=== PATIENT | male | born 1960 | race Caucasian/White ===

== ENCOUNTER 2020-03-04 11:46 | Emergency (ER) | payer OTHER, SELFPAY ==
[2020-03-04] VITALS (12 sets, daily range): BP systolic 121–169; BP diastolic 93–108; PULSE 64–96; RESP 12–21; TEMP 36.2–37; O2SAT 96–100
--- NOTE | ~2020-03-04 | XR_ITS ---
EXAMINATION: XR chest 1V portable EXAM DATE: 03/04/2020 15:14 INDICATION: Cough, headache, dizziness, running nose abdominal pain nausea and vomiting, symptoms 5 d ays. TECHNIQUE: Frontal and lateral projections of the chest obtained and reviewed. Comparison is made to prior examination from 10/02/2017. FINDINGS: Moderate chronic appearing hyperinflation. The lungs are clear. There are no pleural effu sions. The cardiomediastinal silhouette is within normal limits. There is no pneumothorax suspected . The bones and soft tissues are unremarkable. IMPRESSION: 1. No acute cardiopulmonary findings. 2. Hyperinflation. Reviewed, dictated and finalized at location A. [facility]
[2020-03-04 12:15] LABS: Basophils Percent Auto 0.4 % (0.2-1.2); Hematocrit 47.3 % (42.0-52.0); Hemoglobin 16.8 g/dL (14.0-18.0); Immature Granulocyte Absolute 0.03 K/mm3 (0.00-0.031); Immature Granulocyte Percent A 0.4 % (0-0.5); Lymphocytes Absolute Auto 1.31 K/mm3 (0.9-3.2); Lymphocytes Percent Auto 15.5 % (18.3-44.2); Mean Corpuscular HGB Conc 35.5 g/dl (32-36); Mean Corpuscular Hemoglobin 31.9 pg (26-34); Mean Corpuscular Volume 89.8 fl (80-100); Mean Platelet Volume 9.4 fl (7.4-10.4); Monocytes Absolute Auto 0.5 K/mm3 (0.1-0.6); Monocytes Percent Auto 6.3 % (2.6-8.5); Neutrophils Absolute Auto 6.6 K/mm3 (1.3-6.7); Neutrophils Percent Auto 77.4 % (45.5-73.1); Platelet Count Result 272 k/mm3 (150-375); Red Blood Count 5.27 M/mm3 (4.6-6.20); Red Cell Distribution Width 12.5 % (11.5-14.5); White Blood Count 8.5 K/mm3 (4.5-10.0)
[2020-03-04 12:33] LABS: Alanine Aminotransferase 98 U/L (4-50); Albumin Level 4.4 g/dL (3.5-5.1); Alkaline Phosphatase 68 U/L (38-126); Anion Gap 11 mmol/L (8-16); Aspartate Amino Transferase 46 U/L (17-59); Bilirubin,Total 1.7 mg/dL (0.2-1.3); Blood Urea Nitrogen 17 mg/dL (9-20); Calcium 9.7 mg/dL (8.4-10.2); Carbon Dioxide 23 mmol/L (22-30); Chloride 98 mmol/L (98-107); Estimated CRCL calculation 84 ml/min; Estimated Glomerular Filt Rate > 60; Glucose 131 mg/dL (75-110); Lipase 65 U/L (23-300); Potassium 3.8 mmol/L (3.4-5.0); Sodium 132 mmol/L (137-145)
--- NOTE | 2020-03-04 14:17 | ED.URI ---
HPI - URI/Sore Throat General Chief Complaint: Upper Respiratory Infection Stated Complaint: N/V, RUNNY NOSE, HEADACHE Time Seen by Provider: 03/04/20 14:03 Source: patient Mode of arrival: ambulatory Limitations: no limitations History of Present Illness HPI Narrative: Patient 59-year-old female complaining of cough, runny nose, nausea, vomiting, diarrhea abdominal pain, headache x 3 days after drinking alcohol with his brother. Patient currently denies any nausea vomiting, abdominal pain or headache. Patient denies any chest pain or shortness of breath. Patient denies any fever or chills. Related Data Allergies Allergy/AdvReac Type Severity Reaction Status Date / Time No Known Allergies Allergy Unknown Verified 05/09/16 06:53 Review of Systems Review of Systems: All systems reviewed & are unremarkable except as noted in HPI and below Constitutional: Constitutional: Denies body ache(s), Denies chills, Denies excessive sweating, Denies fatigue, Denies fever(s), Denies headache(s), Denies lethargy, Denies malaise, Denies weakness and Denies weight loss Eyes: Eyes: Denies blurry vision, Denies change in vision and Denies loss of vision ENT: Denies dizziness, Denies ear discharge, Denies headache(s), Denies lip swelling, Denies epistaxis, Denies neck pain, Denies throat swelling and Denies tongue swelling Cardiovascular: Cardiovascular: Denies chest pain, Denies chest pain at rest, Denies chest pain with activity, Denies diaphoresis, Denies rapid heart rate, Denies edema, Denies irregular heart rhythm, Denies lightheadedness, Denies palpitations, Denies dyspnea and Denies dyspnea on exertion Respiratory: Respiratory: Denies chest congestion, Denies hemoptysis, Denies dyspnea and Denies dyspnea on exertion Gastrointestinal: Gastrointestinal: Denies abdominal pain, Denies melena, Denies hematochezia and Denies hematemesis Musculoskeletal: Musculoskeletal: Denies abnormal gait, Denies deformity, Denies joint swelling, Denies limited range of motion, Denies neck pain and Denies numbness Neurologic: Denies Abnormal speech present, Denies abnormal gait, Denies confusion, Denies dizziness, Denies headache(s), Denies focal weakness, Denies loss of vision, Denies numbness, Denies Other visual disturbances, Denies Sensory deficit (Neuro) and Denies weakness Psychiatric: Psychiatric: Denies confusion, Denies depression, Denies auditory hallucinations, Denies homicidal ideation and Denies suicidal ideation Endocrine: Endocrine: Denies cold intolerance, Denies excessive sweating, Denies fatigue, Denies heat intolerance and Denies palpitations Hematologic/Lymphatic: Hematologic/Lymphatic: Denies easy bleeding and Denies easy bruising Allergic/Immunologic: Allergic/Immunologic: Denies lip swelling, Denies throat swelling and Denies tongue swelling [facility] Social History Social History Gender identity (if verbalized by the patient): Male Exam Const: General: cooperative, healthy appearing, comfortable, no acute distress, well developed, alert and awake; No confusion Orientation/consciousness: oriented to person, oriented to place, oriented to time, patient oriented x3 and No confusion Limitations: no limitations HENMT: Head: normal to inspection, normocephalic and atraumatic Ears: hearing grossly normal bilaterally, TM normal on the right and TM normal on the left General nose exam: Normal external nose present, Normal nares present and No nasal discharge present Face and sinus: normal facial exam Mouth: Yes Normal oral and palatal mucosa present, Yes lip normal, Yes tongue normal and Yes oropharynx normal Throat: posterior oropharynx normal, tonsils normal and uvula midline Eyes: General: appearance normal, both eyes and all related structures Pupils: Equal, round and reactive pupils present EOM: EOMs intact bilaterally Neck: Neck: normal visual inspection, full ROM, no lymphadenopathy and no meningeal signs Chest: Chest palpation &
[2020-03-04] MEDS: SODIUM CHLORIDE 0.9% IV 1,000 ML 999 ML IV CONT (14:41)
--- NOTE | 2020-03-04 14:41 | PC.NURSE ---
Initial contact with patient. IVF initiated as ordered. Pt refusing orthostatics at present time. Reports feels chilled . Oral temp 98.6 at present.
[2020-03-04 15:48] LABS: Lipase 69 U/L (23-300)
[2020-03-04 15:54] LABS: Add Urine Microscopic? YES; Appearance Urine Clear (Clear); Bacteria Urine Trace /hpf; Bilirubin Urine Negative (Negative); Blood Urine Negative (Negative); Color Urine Yellow (Yellow); Glucose Urine UA Negative (Negative); Ketones Urine 1+ mg/dL (Negative); Leukocyte Esterase Ur Negative LEU/UL (Negative); Mucus Urine Heavy /lpf; Nitrate Urine Negative (Negative); Protein Urine 1+ mg/dL (Negative); Specific Grav Ur 1.028 (1.001-1.035); Urobilinogen Urine Negative mg/dL (<2.0); WBC Urine 0-3 /hpf
== END 2020-03-04 16:55 | disposition home or self-care (01) ==
PROVIDERS: Emergency Medicine; Emergency Provider Emergency Medicine; PCP Family Medicine
DX: J06.9 Acute upper respiratory infection, unspecified (principal)
CPT/HCPCS: 36415; 71045; 80053; 81001; 83690; 85025; 96360; 99283; J7030

== ENCOUNTER 2021-05-16 09:38 | Outpatient (CLI) | payer OTHER, SELFPAY ==
--- NOTE | 2021-05-16 | ECG_ITS ---
Measurements Intervals [place] Rate: 53 P: -35 [place]: 183 QRS: 70 QRSD: 100 T: 63 QT: 414 QTc: 391 Interpretive Statements SINUS BRADYCARDIA OTHERWISE NORMAL ECG NO PREVIOUS ECG AVAILABLE FOR COMPARISON Electronically Signed On 05-16-2021 11:24:22 CDT by Alvarado Yoon M.D.
--- NOTE | ~2021-05-16 | XR_ITS ---
XR chest 2V 05/16/2021 09:58 Indication: Chest pain Procedure: 2 view chest Comparison: 03/04/2020 Findings: Heart size normal. No focal air space disease, pulmonary edema, pleural effusion or suspect ed pneumothorax. The lungs are hyperinflated which is consistent with, but not diagnostic of chronic obstructive pulmonary disease. Impression: 1: No acute cardiopulmonary disease. Reviewed, dictated and finalized at location A. Impression: 1: No acute cardiopulmonary disease.
== END 2021-05-16 09:39 | disposition home or self-care (01) ==
PROVIDERS: PCP Family Medicine; Visit Provider Nurse Practitioner Adult Health
DX: R07.9 Chest pain, unspecified (principal); I20.9 Angina pectoris, unspecified
CPT/HCPCS: 71046; 93005

== ENCOUNTER 2021-06-09 10:56 | Emergency (ER) | payer OTHER, SELFPAY ==
--- NOTE | ~2021-06-09 | XR_ITS ---
EXAMINATION: XR shoulder LT min 2V DATE: 06/09/2021 11:28 INDICATION: Anterior left shoulder pain. TECHNIQUE: 4 views of left shoulder were obtained. COMPARISON: None. FINDINGS: There is a nondisplaced comminuted fracture of proximal humerus with involvement of the gre ater tuberosity. There is mild osteoarthritis of glenohumeral joint and acromioclavicular joint. IMPRESSION: 1. Comminuted one-part fracture of proximal left humerus. 2. Mild polyarticular osteoarthritis. Reviewed, dictated and finalized at location A.
[2021-06-09 11:03] VITALS: BP 156/93; PULSE 90; RESP 14; TEMP 36.8; O2SAT 99
--- NOTE | 2021-06-09 11:14 | ECG_ITS ---
Measurements Intervals [place] Rate: 66 P: 81 [place]: 176 QRS: 44 QRSD: 96 T: 53 QT: 392 QTc: 412 Interpretive Statements SINUS RHYTHM WITH SINUS ARRHYTHMIA ANTERIOR ST-ELEVATION, PROBABLY EARLY REPOLARIZATION ABNORMAL ECG COMPARED TO ECG 05/16/2021 10:15:46 SINUS RHYTHM NOW PRESENT SINUS ARRHYTHMIA NOW PRESENT Electronically Signed On 06-09-2021 15:52:07 CDT by Alvarado Yoon M.D.
[2021-06-09] MEDS: oxyCODONE/ACETAMINOPHEN (*CRX) 5-325 MG TABLET 1 TABLET PO (11:36)
[2021-06-09] MEDS: ONDANSETRON HCL ODT 4 MG TABLET PO (11:36)
--- NOTE | 2021-06-09 11:45 | ED.UPPEXIN ---
HPI - Extremity Injury (Upper) General Chief Complaint: Extremity Injury, Upper Stated Complaint: shoulder injury Time Seen by Provider: 06/09/21 11:08 Source: patient and RN notes reviewed Mode of arrival: ambulatory Limitations: no limitations History of Present Illness HPI narrative: This is a 61 year old male right hand dominant who presents for evaluation of left shoulder pain s/p fall. Patient states he accidentally fell backwards and hit corner of left shoulder on concrete. He denies hitting his head or LOC. He states he is unable to left his left arm without pain. He denies numbness or tingling. He is reporting left anterior chest pain from the fall but denies hitting his chest. He denies sob. He has not taking anything for pain. He is not prescribed blood thinners. He denies neck pain. Related Data Allergies Allergy/AdvReac Type Severity Reaction Status Date / Time No Known Allergies Allergy Unknown Verified 05/09/16 06:53 Review of Systems Review of Systems: All systems reviewed & are unremarkable except as noted in HPI and below PMFSH Past Medical History Medical History (Updated 06/09/21 @ 12:05 by Jane Suarez MD) Anxiety Arteriovenous malformation, brain Depression Surgical History Surgical History (Updated 06/09/21 @ 11:51 by Jane Suarez MD) H/O brain surgery Social History Social History (Updated 06/09/21 @ 11:53 by Jane Suarez MD) Smoking packs per day: 1 Smoking cigarettes per day: 20.0 Smoking status: Current every day smoker Gender identity (if verbalized by the patient): Male Exam Const: General: no acute distress and alert Orientation/consciousness: patient oriented x3 HENMT: Head: normocephalic and atraumatic Face and sinus: face symmetric Eyes: EOM: EOMs intact bilaterally Neck: Neck: normal visual inspection Chest: Chest palpation & inspection: normal inspection of the chest and no tenderness Resp: Effort & Inspection: normal respiratory effort Auscultation: clear to auscultation bilaterally Cardio: Rate: regular rate Rhythm: regular rhythm Heart sounds: no murmurs Back/Spine/Pelvis: Back: no CVA tenderness Cervical Spine: normal cervical lordosis, cervical ROM normal, No cervical muscular tenderness and No Cervical spine tenderness Skin: General skin exam: normal color Rashes: no rashes Extrem: Other: Patient is able to passively abduct left shoulder. Pain along left shoulder greater tuberosity with ranging, neurovascular intact, no deformity, no swelling or bruising. Psych: Mental Status: mental status grossly normal Affect: normal affect Course Reevaluation(s) Date: 06/09/21 Consultations Consultation #1: I Discussed xrary with Dr. Corado, application [facility]. He states to place patient in shoulder immobilizer and have him to follow up in clinic next week. Date: 06/09/21 Time: 11:46 Vital Signs Vital signs: Vital Signs Temperature 98.3 F 06/09/21 11:03 Pulse Rate 90 06/09/21 11:03 Respiratory Rate 14 06/09/21 11:03 Blood Pressure 156/93 H 06/09/21 11:03 Pulse Oximetry 99 06/09/21 11:03 Temperature 98.3 F 06/09/21 11:03 Pulse Rate 90 06/09/21 11:03 Respiratory Rate 14 06/09/21 11:03 Blood Pressure 156/93 H 06/09/21 11:03 Pulse Oximetry 99 06/09/21 11:03 MDM - Extremity Injury (Upper) Imaging Data Radiologist's impression: ITS Impressions Shoulder X-Ray 06/09/21 11:33 IMPRESSION: 1. Comminuted one-part fracture of proximal left humerus. 2. Mild polyarticular osteoarthritis. Discharge Plan Discharge Clinical Impression: Nondisplaced fracture of proximal end of left humerus Patient Disposition: Home, Self-Care Condition: Stable Instructions: Proximal Humerus Fracture (ED), Shoulder Immobilizer (ED) Additional Instructions: Today you were found to have fracture to your shoulder. You will need to wear the shoulder immobilizer as instructed. C
== END 2021-06-09 13:35 | disposition home or self-care (01) ==
PROVIDERS: Emergency Provider General Practice; PCP Family Medicine
DX: S42.255A Nondisplaced fracture of greater tuberosity of left humerus, initial encounter for closed fracture (principal); F17.210 Nicotine dependence, cigarettes, uncomplicated; M19.012 Primary osteoarthritis, left shoulder; R94.31 Abnormal electrocardiogram [ECG] [EKG]; W18.30XA Fall on same level, unspecified, initial encounter
CPT/HCPCS: 73030; 93005; 99283; 99284; A9270

== ENCOUNTER 2021-06-15 16:26 | Outpatient (CLI) | payer OTHER, SELFPAY ==
--- NOTE | ~2021-06-15 | CT_ITS ---
EXAMINATION: CT shoulder LT wo con DATE: 06/15/2021 16:55 INDICATION: Proximal left humeral fracture TECHNIQUE: High resolution computed tomography (CT) of the left shoulder was performed without intrav enous contrast. Additional sagittal and coronal reconstructions were performed. Automated exposure co ntrol and iterative reconstruction technique were employed. The dose-length product was 289.11 mGy-cm . COMPARISON: None FINDINGS: Minimally displaced, mildly comminuted fracture involving the greater tuberosity of the proximal left humerus. Alignment remains near anatomic. No other fractures identified. Minimal osteoarthritis at t he glenohumeral and acromioclavicular joints. Small glenohumeral joint effusion. Mild emphysema in th e visualized left upper lung. IMPRESSION: 1. Minimally displaced comminuted one-part fracture of the greater tuberosity of the left humerus. Reviewed, dictated and finalized at location A. IMPRESSION: 1. Minimally displaced comminuted one-part fracture of the greater tuberosity o f the left humerus.
== END 2021-06-15 16:27 | disposition home or self-care (01) ==
LOC: ANHIMG 16:27
PROVIDERS: PCP Family Medicine; Visit Provider Orthopaedic Surgery
DX: S42.252A Displaced fracture of greater tuberosity of left humerus, initial encounter for closed fracture (principal); X58.XXXA Exposure to other specified factors, initial encounter
CPT/HCPCS: 73200

== ENCOUNTER 2021-11-05 09:16 | Emergency (ER) | payer OTHER, SELFPAY ==
[2021-11-05 09:19] VITALS: BP 120/75; PULSE 72; RESP 18; TEMP 36.2; O2SAT 98
--- NOTE | 2021-11-05 10:06 | ED.EYEPROB ---
HPI - Eye Problem General Chief complaint: Eye Problems Stated complaint: something in eye Time Seen by Provider: 11/05/21 09:31 Source: patient Mode of arrival: ambulatory Limitations: no limitations History of Present Illness HPI Narrative: Patient presents to the emergency department for a possible foreign body in the left eye. Reports he was outside when he felt like something flew into his eye. He has had a sensation of foreign body on his left upper eyelid since. Reports irritation and discomfort. Denies fever or visual changes. Related Data Allergies Allergy/AdvReac Type Severity Reaction Status Date / Time No Known Allergies Allergy Unknown Verified 11/05/21 09:33 Review of Systems Review of Systems: CONSTITUTIONAL: Denies fever EYES: Reports redness. Denies visual changes, or discharge. All systems reviewed & are unremarkable except as noted in HPI and below PMFSH Past Medical History Medical History (Updated 11/05/21 @ 10:08 by Vianey Luong PA-C) Anxiety Arteriovenous malformation, brain Depression Surgical History Surgical History (Updated 06/09/21 @ 11:51 by Jane Suarez MD) H/O brain surgery Social History Social History (Updated 11/05/21 @ 10:14 by Vianey Luong PA-C) Smoking packs per day: 1 Smoking cigarettes per day: 20.0 Smoking status: Former smoker Gender identity (if verbalized by the patient): Male Exam Narrative: GENERAL: Well-appearing, well-nourished, and in no acute distress. HEAD: Normocephalic, atraumatic. EYES: PERRLA. Right eye is deviated inward. 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 Left eye EOMI with mild conjunctival injection. Pressure on the right 26, on the left 14. There is a very small black foreign body noted in the left upper eyelid, this was easily removed with a q tip. No fluorescein stain uptake EXTREMITIES: Normal range of motion. No edema. SKIN: Warm, dry, no rash. NEURO: No focal deficits. Alert and oriented x3. PSYCH: Normal mood and affect Course Vital Signs Vital signs: Vital Signs Temperature 97.2 F L 11/05/21 09:19 Pulse Rate 72 11/05/21 09:19 Respiratory Rate 18 11/05/21 09:19 Blood Pressure 120/75 11/05/21 09:19 Pulse Oximetry 98 11/05/21 09:19 Oxygen Delivery Room Air 11/05/21 09:19 Temperature 97.2 F L 11/05/21 09:19 Pulse Rate 72 11/05/21 09:19 Respiratory Rate 18 11/05/21 09:19 Blood Pressure 120/75 11/05/21 09:19 Pulse Oximetry 98 11/05/21 09:19 Oxygen Delivery Room Air 11/05/21 09:19 MDM - Eye Problem MDM Narrative Medical decision making narrative: Patient presents to the emergency department for possible foreign body in the left eye. I did note a very small black foreign body on the left, inner upper eyelid. This was easily removed with a Q-tip. Patient reports feeling much better after this. Patient chronically has poor vision. 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 Visual acuity in the left is 20/100. Reports he has not been to his eye doctor in years. His eye pressure on the right was noted to be elevated. He does have known history of glaucoma and once again is blind in this eye. No obvious fluorescein stain uptake. Patient will be prophylactically started on antibiotic eye ointment after removal of a small foreign body. He was instructed to have close follow-up with his eye doctor. He was given warnings to return to the ER Critical Care Time Critical Care Time Critical Care Time: No Discharge Plan Discharge Clinical Impression: Acute foreign body of left eyelid Qualifiers: Encounter type: initial encounter Qualified Code(s): S00.252A - Superficial foreign body of left eyelid and periocular area, initial encounter Patient Disposition: Home, Self-Care Condition: Stable Instructions: Antibiotic Form, Eye Foreign Body (ED) Additional Instructions: Return to the emergency department if you e
[2021-11-05] MEDS: ERYTHROMYCIN OPHTH OINTMENT 1 GM TUBE 1 APPLIC LEFT EYE (10:15)
== END 2021-11-05 10:18 | disposition home or self-care (01) ==
PROVIDERS: Emergency Provider Emergency Medicine; PCP Family Medicine
DX: S00.252A Superficial foreign body of left eyelid and periocular area, initial encounter (principal); W20.8XXA Other cause of strike by thrown, projected or falling object, initial encounter; H54.61 Unqualified visual loss, right eye, normal vision left eye
CPT/HCPCS: 99283; A9270

== ENCOUNTER 2022-06-03 15:19 | Emergency (ER) | payer OTHER, SELFPAY ==
[2022-06-03] VITALS (24 sets, daily range): BP systolic 140–175; BP diastolic 72–140; PULSE 62–88; RESP 13–23; TEMP 36.6; O2SAT 97–100
--- NOTE | ~2022-06-03 | CT_ITS ---
EXAMINATION: CT cervical spine wo con DATE: 06/03/2022 17:29 INDICATION: neck spasms extending into arms TECHNIQUE: Computed tomography (CT) of the cervical spine was performed without intravenous contrast. Automated exposure control and iterative reconstruction technique were employed. The dose-length pro duct was 376.24 mGy-cm. COMPARISON: None. FINDINGS: Vertebral Body Alignment: Intact. Reversed lordosis, centered at C4. Craniocervical and atlantoaxial alignment: Moderate degenerative change. Alignment intact. Osseous structures/fracture: No evidence of a lytic or blastic process in the visualized spine. No e vidence of acute fracture. Old C7 spinous process fracture. Left C2-3 facet fusion. Cervical soft tissues: The paraspinal soft tissues planes are maintained. Solid-appearing right thyro id lobe mass measuring at least 4.5 cm, not completely included in the [id number]. Biapical pleura l scarring and multiple bullae. Degenerative changes: Multilevel degenerative disc disease, moderate at C5-6 and C6-7. Multilevel mil d facet arthropathy. No central canal narrowing. Multilevel mild bilateral neural foraminal narrowing . IMPRESSION: No acute fracture or traumatic malalignment in the cervical spine. Incompletely visualized solid righ t thyroid lobe mass measuring at least 4.5 cm, recommend outpatient thyroid ultrasound for further ch aracterization. Reviewed, dictated and finalized at location K. IMPRESSION: No acute fracture or traumatic malalignment in the cervical spine. Incompletely visualized solid right thyroid lobe mass measuring at least 4.5 cm, recommend outpatient thyroid ultrasound for further characterization.
--- NOTE | ~2022-06-03 | XR_ITS ---
EXAMINATION: XR chest 1V portable Exam Date/Time: 06/03/2022 16:24 CDT HISTORY: CP, NECK PAIN, R.ARM PAIN Comparison: 05/16/2021. RESULT: Lines, tubes, and devices: None. Lungs and pleura: Clear. Cardiomediastinal silhouette: Stable. Other: No acute osseous or upper abdominal finding. IMPRESSION: No acute cardiopulmonary process. Reviewed, dictated and finalized at location K.
--- NOTE | 2022-06-03 15:56 | ECG_ITS ---
Measurements Intervals [place] Rate: 65 P: 86 [place]: 171 QRS: 65 QRSD: 94 T: 64 QT: 400 QTc: 418 Interpretive Statements SINUS RHYTHM DIFFUSE J-POINT ELEVATION CONSIDER EARLY REPOLARIZATION ABNORMALITY, ACUTE PERICARDITIS OR MYOCARDIAL INJURY BORDERLINE ECG COMPARED TO ECG 06/09/2021 11:45:09 NO SIGNIFICANT CHANGES Electronically Signed On 06-04-2022 16:51:26 CDT by Moose Waller M.D.
[2022-06-03 16:34] LABS: Basophils Percent Auto 0.4 % (0.2-1.2); Eosinophils Absolute Auto 0.1 K/mm3 (0-0.3); Eosinophils Percent Auto 1.9 % (0-4.4); Hematocrit 42.9 % (42.0-52.0); Immature Granulocyte Absolute 0.02 K/mm3 (0.00-0.031); Immature Granulocyte Percent A 0.3 % (0-0.5); Lymphocytes Absolute Auto 1.94 K/mm3 (0.9-3.2); Lymphocytes Percent Auto 28.2 % (18.3-44.2); Mean Corpuscular Volume 94.3 fl (80-100); Mean Platelet Volume 9.4 fl (7.4-10.4); Monocytes Absolute Auto 0.5 K/mm3 (0.1-0.6); Monocytes Percent Auto 7.3 % (2.6-8.5); Neutrophils Absolute Auto 4.3 K/mm3 (1.3-6.7); Neutrophils Percent Auto 61.9 % (45.5-73.1); Platelet Count Result 283 k/mm3 (150-375); Red Blood Count 4.55 M/mm3 (4.6-6.20); Red Cell Distribution Width 13.5 % (11.5-14.5); White Blood Count 6.9 K/mm3 (4.5-10.0)
[2022-06-03] MEDS: LACTATED RINGERS 1,000 ML 999 ML IV CONT (16:37)
[2022-06-03] MEDS: LORazepam INJ (*CRX) 2 MG/ML VIAL 1 MG IV PUSH (16:37)
[2022-06-03 16:46] LABS: INR 0.9; Partial Thromboplastin Time 28.3 SECONDS (22.3-36.8); Prothrombin Time 12.2 Seconds (11.1-14.7)
--- NOTE | 2022-06-03 16:50 | ED.NECK ---
HPI - Neck Pain/Injury General Chief Complaint: Neck Pain/Injury <Shira Davenport PA-C - Last Filed: 06/03/22 20:22> Stated Complaint: muscle spasm <SANJAY Sorto Last Filed: 06/03/22 20:22> Time Seen by Provider: 06/03/22 16:06 <SANJAY Sorto Last Filed: 06/03/22 20:22> Source: patient <SANJAY Sorto Last Filed: 06/03/22 20:22> Mode of arrival: ambulatory <SANJAY Sorto Last Filed: 06/03/22 20:22> Limitations: no limitations <SANJAY Sorto Last Filed: 06/03/22 20:22> History of Present Illness HPI Narrative: Patient is a 62-year-old male who presents to the ED with report of neck pain and spasming. Patient reports having pain from the base of his skull, down his neck, down bilateral upper arms to his elbows. He states the pain is spasm-like and lasts for few minutes at a time. Patient reports history of similar pain and spasms since earlier this year. The current episode began this morning. The pain became so severe that patient decided to come to the ED. He notes that he has been lifting frequently at work and raking leaves. He has not tried anything for the pain prior to arrival. He states the pain is now extending towards his chest, but denies difficulty breathing, recent fevers, injury, cough or cold symptoms, numbness, tingling. <Shira Davenport PA-C - Last Filed: 06/03/22 20:22> Related Data Allergies/Adverse Reactions: Allergies Allergy/AdvReac Type Severity Reaction Status Date / Time No Known Allergies Allergy Unknown Verified 06/03/22 15:20 <SANJAY Sorto Last Filed: 06/03/22 20:22> Review of Systems Review of Systems: CONSTITUTIONAL: Denies fever, chills, or sweats. ENT: Denies rhinorrhea, congestion, sore throat. CARDIOVASCULAR: See HPI. RESPIRATORY: Denies cough or dyspnea. GASTROINTESTINAL: Denies abdominal pain, nausea, vomiting. MUSCULOSKELETAL: See HPI. NEUROLOGIC: Denies headache, numbness, or weakness. <Shira Davenport PA-C - Last Filed: 06/03/22 20:22> All systems reviewed & are unremarkable except as noted in HPI and below <Shira Davenport PA-C - Last Filed: 06/03/22 20:22> [facility] Past Medical History Medical History: Medical History Anxiety Arteriovenous malformation, brain Depression <Shira Davenport PA-C - Last Filed: 06/03/22 20:22> Surgical History Surgical History: Surgical History H/O brain surgery <Shira Davenport PA-C - Last Filed: 06/03/22 20:22> Social History Social History: Social History Smoking packs per day: 1 Smoking cigarettes per day: 20.0 Smoking status: Former smoker Gender identity (if verbalized by the patient): Male <Shira Davenport PA-C - Last Filed: 06/03/22 20:22> Exam Narrative: GENERAL: Appears older than stated age, thin, non-toxic, in no acute distress. HEAD: Normocephalic, atraumatic. NECK: Supple. No adenopathy, no masses. No midline spinal tenderness. Tenderness to palpation throughout left-sided paraspinal musculature into the trapezius muscle. Palpable muscle tension. RESPIRATORY: Airway patent, respirations nonlabored. Clear to auscultation bilaterally, no rales, rhonchi, wheezing. CARDIOVASCULAR: Regular rate and rhythm without murmurs, rubs, or gallops. Radial pulses 2+ and equal bilaterally. MUSCULOSKELETAL: Moves all extremities. Strength/ROM intact without gross deformities. No midline thoracic or lumbar spinal tenderness. No anterior chest wall tenderness to palpation. Sensation intact. Full ROM of BUEs. SKIN: Warm, dry, normal color. No rashes. NEURO: A&O X3. Speech clear. Cranial nerves II-XII grossly intact. Steady gait. No ataxic movements. PSYCHIATRIC: Anxious.
[2022-06-03 16:52] LABS: Alanine Aminotransferase 21 U/L (6-50); Albumin Level 4.6 g/dL (3.5-5.1); Alkaline Phosphatase 48 U/L (38-126); Anion Gap 8 mmol/L (8-16); Aspartate Amino Transferase 24 U/L (17-59); Bilirubin,Total 0.9 mg/dL (0.2-1.3); Blood Urea Nitrogen 16 mg/dL (9-20); Calcium 9.3 mg/dL (8.4-10.2); Carbon Dioxide 24 mmol/L (22-30); Chloride 106 mmol/L (98-107); Estimated CRCL calculation 79 ml/min; Estimated Glomerular Filt Rate > 60; Glucose 95 mg/dL (65-110); Potassium 4.2 mmol/L (3.4-5.0); Sodium 138 mmol/L (137-145)
[2022-06-03 17:41] LABS: Troponin I < 0.012 ng/mL (0.000-0.034)
[2022-06-03 18:17] LABS: Appearance Urine Clear (Clear); Bilirubin Urine Negative (Negative); Blood Urine Negative (Negative); Color Urine Yellow (Yellow); Glucose Urine UA Negative (Negative); Ketones Urine Negative (Negative); Leukocyte Esterase Ur Negative LEU/UL (Negative); Nitrate Urine Negative (Negative); Protein Urine Negative (Negative); Specific Grav Ur 1.019 (1.001-1.035)
[2022-06-03 18:22] LABS: Add Urine Microscopic? NO
[2022-06-03 18:33] LABS: Amphetamine Screen Urine Negative (Negative); Barbiturate Screen Urine Negative (Negative); Benzodiazepines Screen Urine Negative (Negative); Cannabinoid Screen Urine Positive (Negative); Cocaine Screen Urine Negative (Negative); Methadone Screen Urine Negative (Negative); Opiate Screen Urine Negative (Negative); Phencyclidine Screen Urine Negative (Negative)
[2022-06-03 20:12] LABS: Troponin I < 0.012 ng/mL (0.000-0.034)
[2022-06-03] MEDS: KETOROLAC 30 MG/ML VIAL (*BKC) IV PUSH (20:22)
[2022-06-03] MEDS: CYCLOBENZAPRINE HCL 5 MG TABLET PO (20:22)
== END 2022-06-03 20:33 | disposition home or self-care (01) ==
PROVIDERS: Emergency Medicine; Emergency Provider Physician Assistant; PCP Family Medicine
DX: E04.9 Nontoxic goiter, unspecified (principal); M54.12 Radiculopathy, cervical region; Z87.891 Personal history of nicotine dependence
CPT/HCPCS: 36415; 71045; 72125; 80053; 80307; 81003; 83735; 84484; 85025; 85610; 85730; 93005; 96361; 96374; 96375; 99284; A9270; J1885; J2060; J7120

== ENCOUNTER 2022-06-08 15:32 | Outpatient (CLI) | payer OTHER, SELFPAY ==
--- NOTE | ~2022-06-08 | US_ITS ---
EXAMINATION: US thyroid DATE: 06/08/2022 15:59 INDICATION: Thyroid nodule. TECHNIQUE: Multiple ultrasound images of the thyroid were obtained. COMPARISON: None. FINDINGS: The right thyroid lobe measures 7.5 x 3.8 x 4.6 cm. The left thyroid lobe measures 4.3 x 2.1 x 2.5 c m. In the right thyroid lobe, there is a 2.1 cm solid, hyperechoic, wider than tall nodule with smoo th margin without echogenic foci (TI-RADS TR3). In the right thyroid lobe, there is a 4.2 cm solid, p redominantly solid, hyperechoic, wider than tall nodule with smooth margin without echogenic foci (TR 3). In the left thyroid lobe, there is a 1.6 cm solid, hypoechoic, wider than tall nodule with ill-de fined margin without echogenic foci (TR4). In the left thyroid lobe, there is a 1.1 cm solid, hypoech oic, wider than tall nodule with ill-defined margin without echogenic foci (TR4). IMPRESSION: 1. Multinodular goiter. Ultrasound-guided fine-needle aspiration of 2 nodules is recommended. Reviewed, dictated and finalized at location A. IMPRESSION: 1. Multinodular goiter. Ultrasound-guided fine-needle aspiration of 2 nodules i s recommended.
== END 2022-06-08 15:33 | disposition home or self-care (01) ==
PROVIDERS: PCP Family Medicine; Visit Provider Nurse Practitioner Adult Health
DX: E04.2 Nontoxic multinodular goiter (principal)
CPT/HCPCS: 76536

== ENCOUNTER 2022-06-15 09:20 | Outpatient (CLI) | payer OTHER, SELFPAY ==
--- NOTE | ~2022-06-15 | US_ITS ---
EXAMINATION: US FNA w image guidance, US FNA additional DATE: 06/15/2022 10:31 INDICATION: Nontoxic multinodular goiter TECHNIQUE: A time-out was performed to verify the patient's name, date of , and procedure to be performed . The procedure and its benefits and risks were discussed with the patient. Risks specifically discus sed included bleeding and infection. The patient understood the risks and agreed to proceed. The neck was prepped and draped in the usual sterile manner. Attention was first turned to the left thyroid n odule. 3 mL 1% lidocaine was used for local anesthesia. 6 passes were made with a 25G needle into th e lesion. Appropriate needle location was documented with continuous sonographic guidance. Attention was then turned to the right thyroid mass. An additional 3 mL 1% lidocaine was used for local anesth esia. 6 passes were made with a 25G needle into the lesion. Appropriate needle location was documente d with continuous sonographic guidance. Sterile bandages were applied. There were no immediate compl ications. FINDINGS: Grayscale ultrasound images demonstrate biopsy needles advanced into the previous noted 1.6 cm TI RAD S 4 nodule at the inferior left thyroid. Subsequent images demonstrate biopsy needle advanced into th e larger 4.2 cm TI RADS 3 mass at the inferior right thyroid. IMPRESSION: 1. Successful ultrasound-guided fine needle aspiration of a 1.6 cm TI RADS 4 left thyroid nodule. 2. Successful ultrasound guided fine needle aspiration of a 4.2 cm TI RADS 3 right thyroid mass. Reviewed, dictated and finalized at location A. IMPRESSION: 1. Successful ultrasound-guided fine needle aspiration of a 1.6 cm TI RADS 4 l eft thyroid nodule. 2. Successful ultrasound guided fine needle aspiration of a 4.2 cm TI RADS 3 ri ght thyroid mass.
== END 2022-06-15 09:21 | disposition home or self-care (01) ==
PROVIDERS: PCP Family Medicine; Visit Provider Nurse Practitioner Adult Health
DX: E04.2 Nontoxic multinodular goiter (principal)
CPT/HCPCS: 10005; 10006; 88173; 88305

== ENCOUNTER 2022-10-27 14:16 | Emergency (ER) | payer OTHER, SELFPAY ==
[2022-10-27 14:36] VITALS: BP 124/78; PULSE 76; RESP 16; TEMP 36.7; O2SAT 98
--- NOTE | 2022-10-27 16:03 | ED.EYEPROB ---
HPI - Eye Problem General Chief complaint: Eye Problems Stated complaint: R EYE IRRITATION Time Seen by Provider: 10/27/22 14:43 Source: patient Mode of arrival: ambulatory Limitations: no limitations History of Present Illness HPI Narrative: This is a 62-year-old male with PMH of AVM, macular degeneration, chronic glaucoma who presents to the ED with chief complaint of right eye irritation for the past 3 days. Patient reports that the last several days he has been working outside in the hot sun for multiple hours a day. He reports he started with a gradual onset headache. He feels that it was due to being dehydrated and being outside for too long. He also reports clear drainage intermittently out of the right eye. Reports rhinorrhea and nasal congestion as well. States he was working in a lot of different grasses and weeds. Denies trauma, purulent drainage or crusted drainage in the mornings. Denies any further complaints. He states the right eye has been completely blind since he was a little kid. He reports that his headache had resolved completely as he was waiting to be seen. He states he feels much better indoors. Related Data Allergies Allergy/AdvReac Type Severity Reaction Status Date / Time No Known Allergies Allergy Unknown Verified 06/03/22 15:20 Review of Systems Review of Systems: All systems as dictated in [facility] Past Medical History Medical History Anxiety Arteriovenous malformation, brain Depression Surgical History Surgical History H/O brain surgery Social History Social History Smoking packs per day: 1 Smoking cigarettes per day: 20.0 Smoking status: Former smoker Gender identity (if verbalized by the patient): Male Exam Narrative: GENERAL: Well-appearing, well-nourished, and in no acute distress. HEAD: Normocephalic, atraumatic. EYES: PERRLA and EOMI. Right eye: Visual acuity 0 at baseline. Pressure at 22 mmHg. No foreign bodies or corneal abrasions appreciated. Immediate pain relief with tetracaine topically. Left eye: Visual acuity intact. Pressure 15 mmHg. ENT: Nares clear, no rhinorrhea or epistaxis. Mucous membranes moist. Oropharynx without tonsillar hypertrophy exudate or other lesions. NECK: Supple. No adenopathy or masses. CHEST: No respiratory distress. Clear to auscultation. No wheezes rales or rhonchi HEART: Regular rate and rhythm. No murmur heard. Normal peripheral pulses. ABDOMEN: Soft, nontender, nondistended, normal active bowel sounds. MSK: Normal range of motion. No edema. SKIN: Warm, dry, no rash. NEURO: Alert and oriented x3. No focal deficits. PSYCH: Normal mood and affect. Course Vital Signs Vital signs: Vital Signs Temperature 98.0 F 10/27/22 14:36 Pulse Rate 76 10/27/22 14:36 Respiratory Rate 16 10/27/22 14:36 Blood Pressure 124/78 10/27/22 14:36 Pulse Oximetry 98 10/27/22 14:36 Oxygen Delivery Room Air 10/27/22 14:36 Temperature 98.0 F 10/27/22 16:33 Pulse Rate 76 10/27/22 16:33 Respiratory Rate 16 10/27/22 16:33 Blood Pressure 120/70 10/27/22 16:33 Pulse Oximetry 100 10/27/22 16:33 Oxygen Delivery Room Air 10/27/22 14:36 MDM - Eye Problem MDM Narrative Medical decision making narrative: This is a 62-year-old male who presents to the ED with chief complaint of right eye irritation for the past 3 days. Vitals are normal. Exam reveals slightly injected right eye sclera. 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 Pressures of the right eye are very slightly elevated at 22 and normal in the left side. Fluorescein stain does not reveal any foreign bodies or abrasions. He has been working outdoors for the last several days and exposed to a lot of plants,
[2022-10-27 16:33] VITALS: BP 120/70; PULSE 76; RESP 16; TEMP 36.7; O2SAT 100
== END 2022-10-27 16:34 | disposition home or self-care (01) ==
PROVIDERS: Emergency Provider Physician Assistant; PCP Family Medicine
DX: H10.11 Acute atopic conjunctivitis, right eye (principal); H40.9 Unspecified glaucoma; H35.30 Unspecified macular degeneration; H54.61 Unqualified visual loss, right eye, normal vision left eye; Z87.891 Personal history of nicotine dependence
CPT/HCPCS: 99283

== ENCOUNTER 2023-12-02 13:28 | Emergency (ER) | payer OTHER, MEDICAID, SELFPAY ==
--- NOTE | ~2023-12-02 | CT_ITS ---
CT facial bones w con Ordering provider: Kingsley Phillips MD History: . left parotid gland/ left facial swelling. . Comparison: None. Technique: Thin slice axial CT of the facial bones was performed with contrast. Coronal and sagittal reformatted images were also obtained. . Automated exposure control and iterative reconstruction te chnique were employed. The dose-length product was 354.17 mGy-cm. 75 mL Omnipaque 350 was given IV. FINDINGS: The left parotid the gland is slightly enlarged compared to the right with an enhancing tissues. Paro tiditis is possible. Dilated left parotid duct is also noted measuring 8 mm. No definite stones seen in the area of the duct. Adjacent lymph nodes. The parotid the gland is noted with the largest measur es 1.1 cm. PARANASAL SINUSES: Well aerated. BONES: No facial fracture including no nasal bone fracture. Left nasal septal deviation. Degenerative changes of the spine. ORBITS AND SUPERFICIAL SOFT TISSUES: The optic globes and orbits are normal. The superficial soft tis sues are normal. Calcifications are seen in the right orbit medially. Clinical evaluation advised. VISUALIZED MASTOIDS: Well aerated. LIMITED VISUALIZED BRAIN PARENCHYMA: Hypodensity seen in the right parieto-occipital area which may i ndicate old infarct but vasogenic edema with underlying mass cannot be excluded. Clinical correlation and follow-up imaging is advised. IMPRESSION: Hypodensity in the right parieto-occipital area which may indicate old infarct versus mass with vasog enic edema. CT evaluation advised. Slightly enlarged parotid gland with enhancement on dilated duct. No stones seen. Parotiditis is hig hly suggestive. Stenosis at the orifice of the duct is not excluded. Calcifications in the right orbit. Clinical evaluation advised. Reviewed, dictated and finalized at location A. IMPRESSION: Hypodensity in the right parieto-occipital area which may indicate old infarct versus mass with vasogenic edema. CT evaluation advised. Slightly enlarged parotid gland with enhancement on dilated duct. No stones se en. Parotiditis is highly suggestive. Stenosis at the orifice of the duct is no t excluded. Calcifications in the right orbit. Clinical evaluation advised.
--- NOTE | ~2023-12-02 | CT_ITS ---
CT brain wo con Ordering provider: Kingsley Phillips MD History: 63 years Male with . Occipital lobe infarct . Comparison: None. Technique: CT of the head without contrast. Radiation reduction technique utilized.The dose-length product was 605.33 mGy-cm. FINDINGS: BRAIN PARENCHYMA AND CSF SPACES: Hypodensity seen in the right parieto-occipital area suggestive of a n old infarct. No definite mass is seen. No midline shift, mass effect or hemorrhage. The brain pare nchyma and CSF spaces are otherwise normal. VISUALIZED PARANASAL SINUSES: Well aerated. MASTOIDS: Well aerated. BONES: Postoperative changes in the right subapical area.: Fracture in the medial wall of the left l ower SOFT TISSUES: Visualized nasopharynx is normal. Superficial soft tissues are normal. Calcifications in the right orbit. Clinical evaluation advised. IMPRESSION: No acute intracranial findings. 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
[2023-12-02 13:29] VITALS: BP 128/101; PULSE 80; RESP 20; TEMP 36.8; O2SAT 99
--- NOTE | 2023-12-02 14:07 | ED_ITS ---
HPI - General Adult General Chief complaint: Unspecified Stated complaint: Jaw swelling Time Seen by Provider: 12/02/23 14:08 Focused HPI: GENERAL: Well-appearing, well-nourished, and in no acute distress. HEAD: Normocephalic, atraumatic. CHEST: Clear to auscultation. ?No respiratory distress. HEART: Regular rate and rhythm.? NEURO: ?Alert and oriented x3. Patient screened in triage and initial orders placed.? ?Additional care and disposition to be based upon?diagnostic testing and treatment. Related Data Allergies Allergy/AdvReac Type Severity Reaction Status Date / Time No Known Allergies Allergy Unknown Verified 12/02/23 13:33 [facility] Past Medical History Medical History Anxiety Arteriovenous malformation, brain Depression Surgical History Surgical History H/O brain surgery Social History Social History Smoking packs per day: 1 Smoking cigarettes per day: 20.0 Smoking status: Former smoker Gender identity (if verbalized by the patient): Male Course Vital Signs Vital signs: Vital Signs Temperature 98.2 F 12/02/23 13:29 Pulse Rate 80 12/02/23 13:29 Respiratory Rate 20 12/02/23 13:29 Blood Pressure 128/101 H 12/02/23 13:29 Pulse Oximetry 99 12/02/23 13:29 Oxygen Delivery Room Air 12/02/23 13:29 Temperature 98.2 F 12/02/23 13:29 Pulse Rate 80 12/02/23 13:29 Respiratory Rate 20 12/02/23 13:29 Blood Pressure 128/101 H 12/02/23 13:29 Pulse Oximetry 99 12/02/23 13:29 Oxygen Delivery Room Air 12/02/23 13:29 Medical Decision Making Vital Signs Vital Signs: Vital Signs Temperature 98.2 F 12/02/23 13:29 Pulse Rate 80 12/02/23 13:29 Respiratory Rate 20 12/02/23 13:29 Blood Pressure 128/101 H 12/02/23 13:29 Pulse Oximetry 99 12/02/23 13:29 Oxygen Delivery Room Air 12/02/23 13:29 Temperature 98.2 F 12/02/23 13:29 Pulse Rate 80 12/02/23 13:29 Respiratory Rate 20 12/02/23 13:29 Blood Pressure 128/101 H 12/02/23 13:29 Pulse Oximetry 99 12/02/23 13:29 Oxygen Delivery Room Air 12/02/23 13:29 Discharge Plan Discharge Prescriptions: No Action hydrocodone-acetaminophen 5-325 mg tablet 1 tablet PO Q6H PRN (Reason: pain) Qty: 20 0RF naproxen 250 mg tablet 250 mg PO BID PRN (Reason: pain) Qty: 15 0RF cyclobenzaprine 5 mg tablet 5 mg PO TID PRN (Reason: muscle spasm) Qty: 15 0RF Artificial Tears (PF) Dropperette 1 drp RIGHT EYE 4-6XD PRN (Reason: dry eye(s)) Qty: 32 0RF fluticasone propionate [Flonase Allergy Relief] 50 mcg/actuation spray,suspension 1 spray intranasal DAILY Qty: 16 0RF Rx Instructions: administer into each nostril Follow-up/Referrals: PHYSICIAN,FINANCIAL RISK MANAGER [Primary Care Provider] -
--- NOTE | 2023-12-02 14:49 | ED.GENADULT ---
HPI - General Adult General Chief complaint: Unspecified Stated complaint: Jaw swelling Time Seen by Provider: 12/02/23 14:08 History of Present Illness HPI narrative: 63-year-old male present to the emergency department for evaluation for intermittent left facial swelling. Patient does have increased pressure in the left ear and does have history of poor dentition. Patient states that he feels the area will swell up and then shrink down but is never completely resolved. Patient states he does have increased pain in his ear and does have increased pain with swallowing but denies any difficulty with actually swelling. Patient is handling his secretions. Related Data Allergies Allergy/AdvReac Type Severity Reaction Status Date / Time No Known Allergies Allergy Unknown Verified 12/02/23 13:33 Review of Systems Review of Systems: All systems reviewed & are unremarkable except as noted in HPI and below PMFSH Past Medical History Medical History Anxiety Arteriovenous malformation, brain Depression Surgical History Surgical History H/O brain surgery Social History Social History Smoking packs per day: 1 Smoking cigarettes per day: 20.0 Smoking status: Former smoker Gender identity (if verbalized by the patient): Male Exam Narrative: APPEARANCE: Well appearing, no pain, no distress, well-nourished. HEAD: normocephalic, atraumatic. EYES: PERRLA/EOMI, conjunctivae clear. NOSE: Normal no drainage EARS:TMS clear with good light reflex. THROAT: Pharynx clear, no exudate. NECK: Supple. No adenopathy, no masses. RESPIRATORY: Airway patent, respirations nonlabored. Clear to auscultation bilaterally, no rales, rhonchi, wheezing. CARDIOVASCULAR: Regular rate and rhythm without murmurs rubs or gallops. ABDOMINAL: Soft, nontender, nondistended, normal bowel sounds MUSCULOSKELETAL: Moves all extremities. Strength/ROM intact, No edema, No calf tenderness. NEURO: Alert. Cranial nerves II through XII intact. Good gait. Good coordination SKIN: Left facial swelling consistent with suspected parotidis Course Vital Signs Vital signs: Vital Signs Temperature 98.2 F 10/07/24 13:29 Pulse Rate 80 12/02/23 13:29 Respiratory Rate 20 12/02/23 13:29 Blood Pressure 128/101 H 12/02/23 13:29 Pulse Oximetry 99 12/02/23 13:29 Oxygen Delivery Room Air 12/02/23 13:29 Temperature 97.5 F L 12/02/23 15:27 Pulse Rate 84 12/02/23 18:18 Respiratory Rate 14 12/02/23 18:18 Blood Pressure 133/83 12/02/23 18:18 Pulse Oximetry 100 12/02/23 18:18 Oxygen Delivery Room Air 12/02/23 13:29 Medical Decision Making MDM Narrative Medical decision making narrative: 63-year-old male presents emergency department for evaluation for left facial swelling. Patient is afebrile but does have a white blood cell count of 12.5 and a stable hemoglobin of 14.1. Patient has no acute abnormalities on his CMP. Patient was negative for influenza RSV COVID and strep. CT was concerning for parotiditis patient was started on Augmentin the emergency department discharged home with Augmentin. Patient family updated the results of the workup and treatment plan. Patient was also advised to try fani drop to help her pass any sialolith. Differential Diagnosis Differential Diagnosis: Dental abscess, parotid abscess, parotiditis, cellulitis Vital Signs Vital Signs: Vital Signs Temperature 98.2 F 12/02/23 13:29 Pulse Rate 80 12/02/23 13:29 Respiratory Rate 20 12/02/23 13:29 Blood Pressure 128/101 H 12/02/23 13:29 Pulse Oximetry 99 12/02/23 13:29 Oxygen Delivery Room Air 12/02/23 13:29 Temperature 97.5 F L 12/02/23 15:27 Pulse Rate 84 12/02/23 18:18 Respiratory Rate 14 12/02/23 18:18 Blood Pressure 133/83 1
[2023-12-02 15:27] VITALS: BP 130/73; PULSE 76; RESP 16; TEMP 36.4; O2SAT 96
[2023-12-02 15:31] LABS: Strep Group A RT-PCR NOT DETECTED (Negative)
[2023-12-02 15:34] LABS: Basophils Percent Auto 0.2 % (0.2-1.2); Eosinophils Absolute Auto 0.1 K/mm3 (0-0.3); Eosinophils Percent Auto 0.5 % (0-4.4); Hematocrit 41.2 % (42.0-52.0); Hemoglobin 14.1 g/dL (14.0-18.0); Immature Granulocyte Absolute 0.05 K/mm3 (0.00-0.031); Immature Granulocyte Percent A 0.4 % (0-0.5); Lymphocytes Absolute Auto 1.43 K/mm3 (0.9-3.2); Lymphocytes Percent Auto 11.4 % (18.3-44.2); Mean Corpuscular HGB Conc 34.2 g/dl (32-36); Mean Corpuscular Volume 93.4 fl (80-100); Mean Platelet Volume 9.5 fl (7.4-10.4); Monocytes Absolute Auto 0.6 K/mm3 (0.1-0.6); Neutrophils Absolute Auto 10.3 K/mm3 (1.3-6.7); Neutrophils Percent Auto 82.5 % (45.5-73.1); Platelet Count Result 246 k/mm3 (150-375); Red Blood Count 4.41 M/mm3 (4.6-6.20); Red Cell Distribution Width 13.5 % (11.5-14.5); White Blood Count 12.5 K/mm3 (4.5-10.0)
[2023-12-02 15:43] LABS: Influenza A QL RT-PCR Negative (Negative); Influenza B QL RT-PCR Negative (Negative); RSV RNA, RT-PCR Negative (Negative); SARS-CoV-2 RNA PCR Negative (Negative)
[2023-12-02 15:47] LABS: Alanine Aminotransferase 20 U/L (6-50); Alkaline Phosphatase 52 U/L (38-126); Anion Gap 7 mmol/L (4-12); Aspartate Amino Transferase 20 U/L (17-59); Blood Urea Nitrogen 18 mg/dL (9-20); Calcium 9.3 mg/dL (8.4-10.2); Carbon Dioxide 24 mmol/L (22-30); Chloride 104 mmol/L (98-107); Estimated CRCL calculation 87 ml/min; Estimated Glomerular Filt Rate > 60; Glucose 78 mg/dL (65-110); Sodium 135 mmol/L (137-145)
[2023-12-02 16:23] VITALS: BP 146/92; PULSE 79; RESP 17; O2SAT 99
[2023-12-02] MEDS: AMPICILLIN SULB 1.5 GM/NS 50ML 1.5 GM/50 ML VIAL IVPB (17:46)
[2023-12-02 18:18] VITALS: BP 133/83; PULSE 84; RESP 14; O2SAT 100
== END 2023-12-02 18:26 | disposition home or self-care (01) ==
PROVIDERS: Emergency Provider Emergency Medicine
DX: K11.21 Acute sialoadenitis (principal); Z20.822 Contact with and (suspected) exposure to COVID-19; Z87.891 Personal history of nicotine dependence; R93.0 Abnormal findings on diagnostic imaging of skull and head, not elsewhere classified
CPT/HCPCS: 36415; 70450; 70487; 80053; 85025; 87637; 87651; 96365; 99284; J0295; Q9967

== ENCOUNTER 2024-02-25 07:03 | Outpatient (CLI) | payer MEDICARE, MEDICAID, SELFPAY ==
[2024-02-25 08:06] LABS: Basophils Percent Auto 0.5 % (0.2-1.2); Eosinophils Absolute Auto 0.2 K/mm3 (0-0.3); Eosinophils Percent Auto 3.3 % (0-4.4); Hematocrit 42.6 % (42.0-52.0); Hemoglobin 15.1 g/dL (14.0-18.0); Immature Granulocyte Absolute 0.01 K/mm3 (0.00-0.031); Immature Granulocyte Percent A 0.2 % (0-0.5); Lymphocytes Absolute Auto 1.79 K/mm3 (0.9-3.2); Lymphocytes Percent Auto 31.2 % (18.3-44.2); Mean Corpuscular HGB Conc 35.4 g/dl (32-36); Mean Corpuscular Hemoglobin 32.8 pg (26-34); Mean Corpuscular Volume 92.4 fl (80-100); Mean Platelet Volume 9.7 fl (7.4-10.4); Monocytes Absolute Auto 0.4 K/mm3 (0.1-0.6); Monocytes Percent Auto 7.3 % (2.6-8.5); Neutrophils Absolute Auto 3.3 K/mm3 (1.3-6.7); Neutrophils Percent Auto 57.5 % (45.5-73.1); Platelet Count Result 258 k/mm3 (150-375); Red Blood Count 4.61 M/mm3 (4.6-6.20); Red Cell Distribution Width 13.2 % (11.5-14.5); White Blood Count 5.7 K/mm3 (4.5-10.0)
[2024-02-25 08:21] LABS: Alanine Aminotransferase 23 U/L (6-50); Alkaline Phosphatase 53 U/L (38-126); Anion Gap 3 mmol/L (4-12); Aspartate Amino Transferase 22 U/L (17-59); Bilirubin,Total 0.7 mg/dL (0.2-1.3); Blood Urea Nitrogen 19 mg/dL (9-20); Calcium 9.3 mg/dL (8.4-10.2); Carbon Dioxide 23 mmol/L (22-30); Chloride 110 mmol/L (98-107); Cholesterol 163 mg/dL (0-200); Estimated Glomerular Filt Rate > 60; Glucose 123 mg/dL (65-110); HDL Direct 61 mg/dL; Potassium 3.9 mmol/L (3.4-5.0); Sodium 136 mmol/L (137-145); Triglycerides 57 mg/dL (<150)
[2024-02-25 08:32] LABS: LDL Cholesterol Direct 78 mg/dL
[2024-02-25 08:51] LABS: Free T4 Free Thyroxine 1.07 ng/dL (0.78-2.19); Prostate Specific Antigen 0.5 ng/mL (< OR = 4.0); Total Triiodothyronine (T3) 1.27 NG/ML (0.97-1.69)
[2024-02-25 09:17] LABS: Hepatitis C Virus Antibody Negative (Negative)
== END 2024-02-25 07:04 | disposition home or self-care (01) ==
LOC: ANHLAB 07:09
PROVIDERS: Visit Provider Registered Nurse
DX: E78.5 Hyperlipidemia, unspecified (principal); R53.83 Other fatigue; Z12.5 Encounter for screening for malignant neoplasm of prostate; Z11.59 Encounter for screening for other viral diseases
CPT/HCPCS: 36415; 80053; 80061; 84153; 84439; 84443; 84480; 85025; 86803; G0103

== ENCOUNTER 2024-12-14 07:26 | Outpatient (CLI) | payer MEDICARE, MEDICAID, SELFPAY ==
--- OUTSIDE RECORDS SUMMARY | 2024-12-14 07:45 | XMS_ITS | Clinical Summary ---
Author Organization [facility] Address [address] [place] [address] Care Team Providers Care Telephone Information Supervisor Name Role Phone Unavailable Primary Care Provider Unavailabl e Source Comments [facility],non-owned Affiliates and Associated Physician Practices is amultiple site organization consisting of ambulatory clinics and hospital sitesin [place], [place], [place]. This disclosure is being madepursuant to the Care Everywhere program and may not contain all information available regarding this patient. Last updated 17.[facility] Allergies No known active allergies Medications * Be aware that medications may not be up to date on this document. Alwaysverify current medications with the patient. No known medications Active Problems No known active problems Social History Tobacco Use Types Packs/Day Years Used Date Smoking Tobacco: Former Cigarettes Q uit: 2019 Smokeless Tobacco: Never Alcohol Use Standard Drinks/Week Comments Not Currently 0 (1 standard drink = 0.6 oz pur e alcohol) Sex and Gender Information Value Date Recorded Sex Assigned at Not on file Legal Sex Male 9:33 AM CDT Gender Identity Not on file Sexual Orientation Not on file Last Filed Vital Signs Vital Sign Reading Time Taken Comments Blood Pressure - - Pulse - - Temperature - - Respiratory Rate - - Oxygen Saturation - - Inhaled Oxygen Concentration - - Weight 79.4 kg (175 lb) 07/12/2021 12:58 PM CDT Height 185.4 cm (6' 1) 07/12/2021 12:58 PM CDT Body Mass Index 23.09 07/12/2021 12:58 PM CDT Plan of Treatment Health Maintenance Due Date Last Done Comments COLOGUARD (AGES 45-75) - COL ON CA SCREENING 1958 COLON MONITORING 1958 COLONOSCOPY - COLON CA SCREENING 1958 CT COLONOGRAPHY - COLON CA SCREENING 1958 Colorectal Cancer Screening 1958 FIT - COLON CA SCREENING 1958 FLEX SIG - COLON CA SCREENING 1958 LIPID TESTING 1958 HEPATITIS C SCREENING 03/12/1976 DTAP/TDAP/TD VACCINES (1 - Tdap) 1977 PNEUMOCOCCAL VACCINE 50+ (1 of 1 - PCV) 2008 ZOSTER VACCINE (1 of 2) 2008 AAA SCREENING 2023 DEPRESSION SCREENING 02/26/2024 COVID-19 VACCINE (1 - 2023-2 5 season) 2024 INFLUENZA VACCINE (#1) 2024 Respiratory Syncytial Virus (RSV) Vaccine Pt: or over 60 yrs (1 - 1-dose 75+ series) 2033 HEPATITIS B VACCINE Aged Out No longe r eligible based on patient's age to complete this topic HIB VACCINE Aged Out No longer eligi ble based on patient's age to complete this topic HPV VACCINE Aged Out No longer eligi ble based on patient's age to complete this topic MENINGOCOCCAL (Group B) VACC INE SHARED DECISION-MAKING Aged Out No longer eligibl e based on patient's age to complete this topic MENINGOCOCCAL GROUPS A/C/Y/W VACCINE Aged Out No longer eligible b ased on patient's age to complete this topic Insurance [facility]
[2024-12-14 08:27] LABS: Hemoglobin A1C 5.2 % (<5.7)
[2024-12-14 08:30] LABS: Hematocrit 48.0 % (42.0-52.0); Hemoglobin 16.0 g/dL (14.0-18.0); Mean Corpuscular HGB Conc 33.3 g/dl (32-36); Mean Corpuscular Hemoglobin 31.4 pg (26-34); Mean Corpuscular Volume 94.3 fl (80-100); Platelet Count Result 303 k/mm3 (150-375); Red Blood Count 5.09 M/mm3 (4.6-6.20); White Blood Count 5.5 K/mm3 (4.5-10.0)
[2024-12-14 09:16] LABS: Alanine Aminotransferase 18 U/L (6-50); Albumin Level 4.4 g/dL (3.5-5.1); Alkaline Phosphatase 46 U/L (38-126); Anion Gap 7 mmol/L (4-12); Aspartate Amino Transferase 24 U/L (17-59); Bilirubin,Total 0.8 mg/dL (0.2-1.3); Blood Urea Nitrogen 21 mg/dL (9-20); Calcium 9.5 mg/dL (8.4-10.2); Carbon Dioxide 25 mmol/L (22-30); Chloride 105 mmol/L (98-107); Estimated Glomerular Filt Rate > 60; Glucose 97 mg/dL (65-110); Magnesium 2.0 mg/dL (1.6-2.3); Potassium 4.7 mmol/L (3.4-5.0); Prostate Specific Antigen 0.6 ng/mL (< OR = 4.0); Sodium 137 mmol/L (137-145); Thyroid Stimulating Hormone 0.235 uIU/mL (0.465-4.680); Total Protein 7.4 g/dL (6.3-8.2)
[2024-12-14 09:49] LABS: Vitamin B12 549.0 pg/mL (239-931)
[2024-12-15 16:08] LABS: ANA by IFA Rfx Titer/Pattern Negative (.)
== END 2024-12-14 07:27 | disposition home or self-care (01) ==
PROVIDERS: Visit Provider Nurse Practitioner Family
DX: R53.1 Weakness (principal); Z13.220 Encounter for screening for lipoid disorders; R73.01 Impaired fasting glucose; Z13.89 Encounter for screening for other disorder; Z12.5 Encounter for screening for malignant neoplasm of prostate
CPT/HCPCS: 36415; 80053; 82607; 82746; 83036; 83735; 84153; 84443; 85027; 86038; 86430